=== PATIENT | female | born 1990 | race Caucasian/White ===

== ENCOUNTER 2019-05-17 14:47 | Emergency (ER) | payer BC ==
[~2019-05-17] VITALS: Ht 165.1 cm; Wt 68.5 kg
[2019-05-17 14:52] VITALS: BP 104/66
--- NOTE | 2019-05-17 15:01 | NUR ---
PA Hernandez evaluating patient at bedside.
[2019-05-17] MEDS ORDERED: ONDANSETRON 4 MG/2 ML VIAL IVP ONE (15:10)
[2019-05-17] MEDS ORDERED: MORPHINE SULFATE 4 MG/ML SYR IVP ONE (15:10)
[2019-05-17] MEDS ORDERED: NACL 0.9% 1,000 ML IV ONE (15:10)
--- NOTE | 2019-05-17 15:12 | NUR ---
28/F C/O DIZZINESS, NAUSEA, VOMITING, CHILLS, EPIGASTRIC PAIN 10/ SINCE THIS MORNING. EPIGASTRIC PAIN ONLY WHEN VOMITTING. DENIES FEVER OR DIARRHEA. NO CONSTIPATION. LBM YESTERDAY, NORMAL CONSISTENCY. PMH: GALLBLADDER REMOVAL, X2 MEDS: N/A
--- NOTE | 2019-05-17 15:42 | NUR ---
BLOOD DRAW HANDED TO MERCHANDISING SPECIALIST.
[2019-05-17 15:57] LABS: BASOPHILS # (AUTO) 0.1 K/uL (0.00-0.22); BASOPHILS % (AUTO) 0.5 % (0.0-2.0); EOSINOPHILS # (AUTO) 0.1 K/uL (0-0.4); EOSINOPHILS % (AUTO) 0.8 % (0.0-4.0); HEMATOCRIT 40.7 % (36-48); HEMOGLOBIN 13.4 g/dL (12.0-16.0); LYMPHOCYTES # (AUTO) 2.4 K/uL (2.5-16.5); LYMPHOCYTES % (AUTO) 23.4 % (20.5-51.1); MEAN CORPUSCULAR HEMOGLOBIN 29 pg (27-31); MEAN CORPUSCULAR HGB CONC 33 g/dL (33-37); MEAN CORPUSCULAR VOLUME 88.2 fL (80-94); MONOCYTES # (AUTO) 0.6 K/uL (0.8-1.0); NEUTROPHILS # (AUTO) 7.3 K/uL (1.8-7.7); NEUTROPHILS % (AUTO) 69.3 % (42.2-75.2); PLATELET COUNT (AUTO) 309 K/uL (140-450); RED BLOOD CELL COUNT(AUTO) 4.62 MIL/uL (4.20-5.40); RED CELL DISTRIBUTION WIDTH 13.8 % (11.6-13.7); WHITE BLOOD COUNT (AUTO) 10.5 K/uL (4.8-10.8)
[2019-05-17 16:21] LABS: ALBUMIN 3.5 g/dL (3.4-5.0); ANION GAP 15.3 (8-16); CARBON DIOXIDE 23.8 mmol/L (21-32); CREATININE 0.6 mg/dL (0.6-1.3); POTASSIUM 4.1 mmol/L (3.5-5.1); TOTAL BILIRUBIN 0.8 mg/dL (0.0-1.0)
[2019-05-17 16:23] LABS: APPEARANCE,URINE CLEAR (CLEAR); BILIRUBIN,URINE NEGATIVE (NEGATIVE); BLOOD, URINE 3+ (NEGATIVE); COLOR,URINE YELLOW (YELLOW); LEUKOCYTE ESTERASE ,URINE NEGATIVE (NEGATIVE); NITRITE, URINE NEGATIVE (NEGATIVE); PH,URINE 6.5 (5.0-9.0); UGLUCOSE NEGATIVE (NEGATIVE)
[2019-05-17 16:40] LABS: RBC,URINE TOO NUMEROUS TO COUN /HPF (0-5)
[2019-05-17 16:41] LABS: WBC,URINE NONE SEEN /HPF (0-5)
[2019-05-17] MEDS ORDERED: MECLIZINE 25 MG TAB PO ONE ×2 (17:20→17:30)
--- NOTE | 2019-05-17 18:48 | NUR ---
PT RESTING IN BED, NAD, RESPIRATIONS EVEN AND UNLABORED.
--- NOTE | 2019-05-17 19:11 | NUR ---
REPORT GIVEN TO SPENCER VIVAR. TRANSFER OF CARE AT THIS TIME.
[2019-05-17 19:50] VITALS: BP 109/69
--- NOTE | 2019-05-17 19:50 | NUR ---
PT DISCHARGED WITH PAPERWORK. RX BETZY KEENE. EDUCATED PT REGARDING MEDICATIONS AND S/E. EDUCATED D/C DIAGNOSIS AND INSTRUCTIONS. PT VERBALIZED UNDERSTANDING OF TEACHING. TOLD PT TO FOLLOW UP WITH PCP AND WHEN TO RETURN TO ED. PT VSS, DENIES ANY HEADACHE, ABLE TO AMBULATE WITH SLOW STEADY GAIT. ALL QUESTIONS ANSWERED.
== END 2019-05-17 19:50 | disposition home or self-care (01) ==
LOC: MED 14:47
DX: R10.13 Epigastric pain (principal); R11.2 Nausea with vomiting, unspecified; R42 Dizziness and giddiness
CPT/HCPCS: 36415; 74176; 76705; 80053; 81001; 81025; 82150; 82977; 83690; 84703; 85025; 96361; 96374; 96375; 99284; J2270; J2405; J7030; J8597; Q0092

== ENCOUNTER 2019-08-16 08:55 | Emergency (ER) | payer BC ==
[~2019-08-16] VITALS: Ht 165.1 cm; Wt 69.9 kg
[2019-08-16 09:16] VITALS: BP 104/58
--- NOTE | 2019-08-16 09:22 | NUR ---
PT AMB TO BED 4.
[2019-08-16] MEDS ORDERED: KETOROLAC 60 MG/2 ML VIAL IM ONE (09:50)
--- NOTE | 2019-08-16 09:59 | NUR ---
PATIENT PRESENTS TO ED WITH C/O LOWER ABDOMINAL PAIN X 1 DAY. PAIN DESCRIBED SQUEEZING, 8/10. PT IS ON HER 1ST DAY OF MENSTRUAL PERIOD AND USUALLY GETS ONLY MILD ABDOMINAL CRAMPS. PT WAS DIAGNOSED WITH B OVARIAN CYSTS 6 YEARS AGO. DENIES N/V/D; NO URINARY AND BOWEL PROBLEMS. VSS; PATIENT POSITIONED FOR COMFORT; HOB ELEVATED; BEDRAILS UP X2; BED DOWN. ER MD MADE AWARE OF PT STATUS. JANICE
[2019-08-16 11:31] VITALS: BP 104/58
--- NOTE | 2019-08-16 11:32 | NUR ---
Patient discharged with v/s stable. Written and verbal after care instructions given and explained. Patient alert, oriented and verbalized understanding of instructions. Ambulatory with steady gait. All questions addressed prior to discharge. ID band removed. Patient advised to follow up with PMD. Rx of MOTRIN, ZOFRAN, NORCO given. Patient educated on indication of medication including possible reaction and side effects. Opportunity to ask questions provided and answered.
== END 2019-08-16 11:32 | disposition home or self-care (01) ==
LOC: MED 08:55
DX: R10.32 Left lower quadrant pain (principal); R11.0 Nausea; Z90.49 Acquired absence of other specified parts of digestive tract
CPT/HCPCS: 81002; 96372; 99283; J1885